=== PATIENT | female | born 1995 | race Two or more races ===

== ENCOUNTER 2021-05-24 18:28 | Emergency (ER) | payer OTHER ==
[2021-05-24 18:38] VITALS: BP 102/66; PULSE 109; TEMP 97.7; BMI 33.6
[2021-05-24] MEDS ORDERED: ACETAMINOPHEN 500 MG TABLET (FP) PO ONE (19:01)
[2021-05-24] MEDS ORDERED: ACETAMINOPHEN 500 MG TABLET (FP) ONE (19:36)
[2021-05-24 20:00] LABS: BASO % 0.2 % (0-2.0); EOS % 0.9 % (0-4.5); HEMOGLOBIN 12.2 GM/dL (10.7-15.3); LYMPH % 20.4 % (8-40); MCH 28.2 pg (25.7-33.7); MCHC 33.9 g/dl (32.0-36.0); MEAN CELL VOLUME 83.2 fl (80-96); MEAN PLT VOLUME 7.5 fl (7.5-11.1); MONO % 7.1 % (3.8-10.2); NEUT % 71.4 % (42.8-82.8); PH,URINE 6.5 (5.0-8.0); PLATELET COUNT 187 10^3/uL (134-434); RBC 4.32 M/mm3 (3.60-5.2); RDW 13.9 % (11.6-15.6); URINE APPEARANCE CLEAR; URINE BILIRUBIN NEGATIVE (NEGATIVE); URINE COLOR YELLOW; URINE GLUCOSE (UA) TRACE (NEGATIVE); URINE KETONE TRACE (NEGATIVE); URINE LEUK ESTERASE NEGATIVE (NEGATIVE); URINE NITRITE NEGATIVE (NEGATIVE); URINE PROTEIN NEGATIVE (NEGATIVE); WHITE BLOOD COUNT 10.9 K/mm3 (4.0-10.0)
[2021-05-24 20:14] LABS: CALCIUM 8.8 mg/dL (8.5-10.1)
[2021-05-24 20:15] LABS: BLOOD UREA NITROGEN 9.5 mg/dL (7-18)
[2021-05-24 20:18] LABS: CREATININE 0.6 mg/dL (0.55-1.3)
== END 2021-05-24 21:19 | disposition home or self-care (01) ==
LOC: JER 18:28
DX: O26.892 Other specified pregnancy related conditions, second trimester (principal); R10.9 Unspecified abdominal pain; Z3A.15 15 weeks gestation of pregnancy
CPT/HCPCS: 36415; 76815-TC; 80048; 81003; 85025; 87070; 87077; 87086; 87186; 87205; 99284-25

== ENCOUNTER 2022-12-16 10:46 | Emergency (ER) | payer OTHER ==
[2022-12-16 11:27] VITALS: BP 106/64; PULSE 57; RESP 17; TEMP 97.7; BMI 29.2
[2022-12-16] MEDS ORDERED: KETOROLAC TROMETHAMINE 30 MG/1 ML VIAL IM ONE (11:39)
[2022-12-16] MEDS ORDERED: KETOROLAC TROMETHAMINE 30 MG/1 ML VIAL ONE (11:42)
== END 2022-12-16 14:09 | disposition home or self-care (01) ==
LOC: JERFT 10:46 → JER 10:46
PROC: 3E0233Z Introduction of Anti-inflammatory into Muscle, Percutaneous Approach (ICD-10-PCS; principal; 2022-12-16)
DX: M54.50 Low back pain, unspecified (principal); W01.0XXA Fall on same level from slipping, tripping and stumbling without subsequent striking against object, initial encounter
CPT/HCPCS: 70450-TC; 72125-TC; 72128-TC; 72131-TC; 72170-TC-FY; 73030-TC-LT-FY; 99284-25

== ENCOUNTER 2023-01-14 10:55 | Emergency (ER) | payer OTHER ==
[2023-01-14 11:12] VITALS: BP 110/61; PULSE 101; RESP 16; TEMP 98.8; BMI 31.8
[2023-01-14] MEDS ORDERED: ALBUTEROL SO4 0.083% IH SOL 2.5 MG/3 ML VIAL.NEB. NEB ONE ×2 (11:25→12:13)
[2023-01-14 12:22] LABS: THROAT:GRP A STREP NOT DETECTED (NOTDETECTED)
== END 2023-01-14 14:04 | disposition home or self-care (01) ==
LOC: JERFT 10:55
PROC: 3E0F7GC Introduction of Other Therapeutic Substance into Respiratory Tract, Via Natural or Artificial Opening (ICD-10-PCS; principal; 2023-01-14)
DX: R05.1 Acute cough (principal); R53.83 Other fatigue; J01.90 Acute sinusitis, unspecified; J20.8 Acute bronchitis due to other specified organisms; Z20.822 Contact with and (suspected) exposure to COVID-19
CPT/HCPCS: 0241U-QW; 71046-TC-FY; 87651; 99284-25

== ENCOUNTER 2024-01-04 19:02 | Emergency (ER) | payer OTHER ==
[2024-01-04 19:26] VITALS: BMI 31.8
[2024-01-04 21:06] LABS: BASO % 0.5 % (0-2.0); EOS % 0.7 % (0-4.5); HEMATOCRIT 43.8 % (32.4-45.2); HEMOGLOBIN 14.6 GM/dL (10.7-15.3); LYMPH % 38.3 % (8-40); MCH 27.7 pg (25.7-33.7); MCHC 33.3 g/dl (32.0-36.0); MEAN CELL VOLUME 83.2 fl (80-96); MONO % 6.3 % (3.8-10.2); NEUT % 54.2 % (42.8-82.8); PLATELET COUNT 220 10^3/uL (134-434); RBC 5.26 M/mm3 (3.60-5.2); URINE APPEARANCE CLEAR; URINE BILIRUBIN NEGATIVE (NEGATIVE); URINE COLOR YELLOW; URINE GLUCOSE (UA) NEGATIVE (NEGATIVE); URINE KETONE NEGATIVE (NEGATIVE); URINE LEUK ESTERASE NEGATIVE (NEGATIVE); URINE NITRITE NEGATIVE (NEGATIVE); URINE PROTEIN NEGATIVE (NEGATIVE); URINE UROBILINOGEN 0.2 mg/dL (0.2-1.0); WHITE BLOOD COUNT 8.4 K/mm3 (4.0-10.0)
[2024-01-04 21:30] LABS: CHLORIDE 105 mmol/L (98-107); POTASSIUM 4.5 mmol/L (3.5-5.1); SODIUM 139 mmol/L (136-145)
[2024-01-04 21:32] LABS: CALCIUM 9.8 mg/dL (8.5-10.1)
[2024-01-04 21:33] LABS: ALBUMIN 3.7 g/dl (3.4-5.0); ANION GAP 8 mmol/L (4-13); BLOOD UREA NITROGEN 13.2 mg/dL (7-18); CO2 27 mmol/L (21-32); GLUCOSE,RANDOM 89 mg/dL (74-106)
[2024-01-04 21:36] LABS: CREATININE 0.7 mg/dL (0.55-1.3); SGOT/AST 31 U/L (15-37); SGPT/ALT 38 U/L (13-61)
[2024-01-04 21:37] LABS: BILIRUBIN,TOTAL 0.3 mg/dL (0.2-1); TOT PROT 7.3 g/dl (6.4-8.2)
[2024-01-04 21:39] LABS: ALK PHOS 73 U/L (45-117)
[2024-01-04] MEDS ORDERED: MECLIZINE HCL 25 MG TABLET (FP) ONE (21:56)
[2024-01-04] MEDS ORDERED: ACETAMINOPHEN 325 MG TABLET (FP) ONE (21:56)
[2024-01-04] MEDS: MECLIZINE HCL 25 MG TABLET (FP) PO ONE (22:09)
[2024-01-04] MEDS: ACETAMINOPHEN 325 MG TABLET (FP) PO ONE (22:09)
[2024-01-04] MEDS: SODIUM CHLORIDE 1,000 ML IV STA (22:10)
[2024-01-04 23:31] VITALS: BP 110/64; PULSE 74; RESP 16; TEMP 99
== END 2024-01-04 23:31 | disposition home or self-care (01) ==
LOC: JER 19:02
PROC: 3E0337Z Introduction of Electrolytic and Water Balance Substance into Peripheral Vein, Percutaneous Approach (ICD-10-PCS; principal; 2024-01-04)
DX: R51.9 Headache, unspecified (principal); R42 Dizziness and giddiness; R11.0 Nausea
CPT/HCPCS: 36415; 80053; 81003; 84484; 84702; 85025; 93005; 93010; 99284-25

== ENCOUNTER 2024-07-06 14:08 | Emergency (ER) | payer OTHER ==
[2024-07-06 14:46] VITALS: BP 103/66; PULSE 93; RESP 18; TEMP 99.5; BMI 31.8
[2024-07-06] MEDS: IBUPROFEN 600 MG TABLET (FP) PO ONE (15:24)
[2024-07-06] MEDS ORDERED: IBUPROFEN 600 MG TABLET (FP) PO ONE (15:25)
[2024-07-06 16:04] LABS: THROAT:GRP A STREP NOT DETECTED (NOTDETECTED)
== END 2024-07-06 15:51 | disposition home or self-care (01) ==
LOC: JERFT 14:08 → JER 14:08 → JERFT 15:51
DX: R05.9 Cough, unspecified (principal); J06.9 Acute upper respiratory infection, unspecified
CPT/HCPCS: 0241U-QW; 87651; 99283-25